=== PATIENT | male | born 1955 | race Caucasian/White ===

== ENCOUNTER 2018-04-24 11:38 | Emergency (ER) | payer BC, OTHER ==
[~2018-04-24] VITALS: Ht 177.8 cm; Wt 81.6 kg
[~2018-04-24 11:38] MED LIST: IMITREX; VIREAD PO
[2018-04-24] MEDS ORDERED: TENO300T5 PO (11:49)
--- NOTE | 2018-04-24 11:57 | NUR ---
Pt. was seen by .
--- NOTE | 2018-04-24 12:45 | NUR ---
Pt.watching TV,no s/s of distress,denies any pain.
[2018-04-24 13:02] VITALS: BP 138/82
== END 2018-04-24 13:15 | disposition home or self-care (01) ==
LOC: ER 11:40
DX: J20.9 Acute bronchitis, unspecified (principal); F17.200 Nicotine dependence, unspecified, uncomplicated; Z79.899 Other long term (current) drug therapy
CPT/HCPCS: 71045; 93005; A4663